=== PATIENT | female | born 1955 | race Caucasian/White ===

== ENCOUNTER 2020-08-31 11:43 | Outpatient (CLI) | payer MEDICARE, OTHER, SELFPAY ==
--- NOTE | 2020-08-31 | US_ITS ---
WS: [id number] RENAL ULTRASOUND HISTORY: RENAL FUNCTION DECREASED, DEANNA COMPARISON: None available. TECHNIQUE: 2-D and color Doppler imaging of the kidney submitted. Right kidney: 10.3 cm x 5.6 cm x 5.5 cm. Normal echogenicity with no hydronephrosis or mass. Left kidney: 9.9 cm x 5.7 cm x 5.4 cm. Normal echogenicity with no hydronephrosis or mass. Aorta: Normal. Urinary Bladder: Normal distention. US/US renal BI* [id number] IMPRESSION: Normal renal ultrasound.
[2020-08-31 13:03] VITALS: BMI 43.9
[2020-08-31 13:24] VITALS: BP 126/68; PULSE 57; RESP 16; TEMP 36.4; O2SAT 100
[2020-08-31] MEDS: sodium chloride 0.9% 1,000 ML 150 ML IV (13:33)
[2020-08-31 14:06] LABS: Anion Gap 16.1 (5-19); Blood Urea Nitrogen 54 mg/dL (8-23); Calcium 8.9 mg/dL (8.5-10.5); Carbon Dioxide 24 mmol/L (22-29); Chloride 104 mmol/L (98-107); Glucose 116 mg/dL (65-115); Osmolality Calculated 306 mOsm/kg (285-295); Potassium 4.1 mmol/L (3.5-5.1); Sodium 140 mmol/L (136-145)
--- NOTE | 2020-08-31 17:14 | SUR.PREOP ---
report given to ruslan ellis rn and pt brought to room 277-2 via w/c
--- NOTE | 2020-08-31 20:30 | PC.NURSE ---
Patient off floor at this time to discharge home. IVF bag completed and IV removed by this nurse. Patient alert and oriented. Taken by wheelchair to main entrance by SUJIT Parker with all personal belongings. Patient drove self.
[2020-08-31 20:35] VITALS: BP 126/68; PULSE 57; RESP 16; TEMP 36.4; O2SAT 100
== END 2020-08-31 20:35 | disposition home or self-care (01) ==
LOC: RAD 12:37 → MEDSURG 09-03 09:34
PROVIDERS: PCP Registered Nurse; Visit Provider Registered Nurse
DX: N28.9 Disorder of kidney and ureter, unspecified (principal); N17.9 Acute kidney failure, unspecified; N18.32 Chronic kidney disease, stage 3b; E86.0 Dehydration
CPT/HCPCS: 36415; 76770; 80048; 96360; 96361; J7030